=== PATIENT | female | born 1985 | race Two or more races ===

== ENCOUNTER 2019-06-22 15:36 | Emergency (ER) | payer SELFPAY ==
[~2019-06-22] VITALS: Ht 152.4 cm; Wt 53.1 kg
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
--- NOTE | 2019-06-22 15:56 | NUR ---
KRISTI HICKEY AT BEDSIDE FOR EVAL.
--- NOTE | 2019-06-22 16:27 | NUR ---
PT TO RADIOLOGY FOR HEAD AND C SPINE CT SCAN VIA [facility].
--- NOTE | 2019-06-22 18:30 | NUR ---
Naomy Jordan/Naina.
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
[2019-06-22 19:11] VITALS: BP 115/62
== END 2019-06-22 19:12 | disposition home or self-care (01) ==
LOC: ER 15:39
DX: S00.83XA Contusion of other part of head, initial encounter (principal); M54.2 Cervicalgia; R07.89 Other chest pain; E78.5 Hyperlipidemia, unspecified; V49.59XA Passenger injured in collision with other motor vehicles in traffic accident, initial encounter; Y93.89 Activity, other specified; Y92.413 State road as the place of occurrence of the external cause; Y99.8 Other external cause status
CPT/HCPCS: 70450-TC; 71045-TC; 72125-TC; 84703-TC